=== PATIENT | male | born 1985 | race Hispanic/Latino ===

== ENCOUNTER 2021-06-28 08:30 | Day surgery (SDC) | payer BC ==
[2021-06-25 13:16] LABS: BASOPHILS % (AUTO) 0.6 % (0.0-5.0); EOSINOPHILS % (AUTO) 2.5 % (0.0-8.0); HEMATOCRIT 49.8 % (42-54); LYMPHOCYTES % (AUTO) 36.9 % (21.0-51.0); MEAN CORPUSCULAR HEMOGLOBIN 27.7 pg (27.0-33.0); MEAN CORPUSCULAR HGB CONC 32.5 g/dL (32.0-36.0); MEAN CORPUSCULAR VOLUME 85.3 fL (79-99); MONOCYTES % (AUTO) 11.5 % (3.0-13.0); PLATELET COUNT (AUTO) 386 K/uL (130-400); RED BLOOD CELL COUNT(AUTO) 5.84 MIL/uL (4.50-6.20); RED CELL DISTRIBUTION WIDTH 12.5 % (11.0-15.5); WHITE BLOOD COUNT (AUTO) 6.5 K/uL (4.8-10.8)
[2021-06-25 13:29] LABS: PROTHROMBIN TIME 10.9 SEC (9.6-11.6)
[2021-06-25 13:30] LABS: PARTIAL THROMBOPLASTIN TIME 29.5 SEC (26.3-35.5)
[2021-06-27 08:47] VITALS: BP 130/76
[2021-06-28] VITALS (10 sets, daily range): BP systolic 112–137; BP diastolic 66–81
[~2021-06-28] VITALS: Ht 162.6 cm; Wt 86.5 kg
[~2021-06-28 08:30] MED LIST: CEFAZOLIN SODIUM 1 GM VIAL IVP SCH; testosterone PO
[2021-06-28] MEDS ORDERED: LACTATED RINGERS 1000ML 1,000 ML IV ONE (09:15)
[2021-06-28] MEDS: CEFAZOLIN SODIUM 1 GM VIAL ONE ×2 (09:45→10:40)
[2021-06-28] MEDS ORDERED: PROPOFOL 10 MG/ML 20ML VIAL IV ONE (10:16)
[2021-06-28] MEDS ORDERED: ROCURONIUM 10MG/1ML SYR 10 MG/ML ML ONE (10:16)
[2021-06-28] MEDS ORDERED: LIDOCAINE PF 100MG/5ML (2%) SYRINGE 5ML ONE (10:16)
[2021-06-28] MEDS ORDERED: MIDAZOLAM HCL 1 MG/ML 2ML VIAL ONE (10:16)
[2021-06-28] MEDS ORDERED: FENTANYL CITRATE PF 50 MCG/1 ML 5ML AMP IV ONE (10:17)
[2021-06-28] MEDS ORDERED: ONDANSETRON 4MG INJ ONE (10:26)
[2021-06-28] MEDS ORDERED: MEPERIDINE-PF 25 MG/ML SYG ONE (11:00)
[2021-06-28] MEDS ORDERED: DEXAMETHASONE SOD PHOSPHATE 10MG/ML 1ML VIAL ONE (11:12)
[2021-06-28] MEDS ORDERED: NEOSTIGMINE 5MG/5ML SYR IV ONE (11:14)
[2021-06-28] MEDS ORDERED: GLYCOPYRROLATE 1 MG/5 ML SYRINGE ONE (11:14)
[2021-06-28] MEDS ORDERED: BUPIVACAINE/PF 0.25% 30ML VIAL IJ ONE (11:14)
== END 2021-06-28 13:04 | disposition home or self-care (01) ==
LOC: DAH 08:30
PROVIDERS: ATTEND Urology
DX: Z30.2 Encounter for sterilization (principal); K21.9 Gastro-esophageal reflux disease without esophagitis; Z20.822 Contact with and (suspected) exposure to COVID-19; F17.200 Nicotine dependence, unspecified, uncomplicated; Z79.899 Other long term (current) drug therapy; Z79.01 Long term (current) use of anticoagulants
CPT/HCPCS: 36415; 55250; 85025; 85610; 85730; 87635; A4215; A4221; A4222; A4223; A4600; A4663; C9803; J0690; J1100; J2001; J2175; J2250; J2405; J2704; J2710; J3010; J3490 ×2; J7120 ×2